=== PATIENT | male | born 1975 | race Caucasian/White ===

== ENCOUNTER 2019-03-09 23:41 | Emergency (ER) | payer OTHER ==
[~2019-03-09] VITALS: Ht 182.9 cm; Wt 92.1 kg
[2019-03-10] MEDS ORDERED: SYMBICORT 16010.2 GM IH (05:39)
[2019-03-10] MEDS ORDERED: ZYNCOF 20-400120 ML PO (05:39)
[2019-03-10] MEDS ORDERED: ALBUTEROL2.5 MG/3 M IH (05:39)
== END 2019-03-10 07:58 | disposition home or self-care (01) ==
LOC: ER 23:41
DX: R05 Cough (principal); R06.02 Shortness of breath